=== PATIENT | female | born 1995 | race Hispanic/Latino ===

== ENCOUNTER 2024-06-19 02:50 | Emergency (ER) | payer BC, OTHER ==
[2024-06-19] MEDS ORDERED: HYDROcodone/Acetaminophen 5/325 mg Tablet ONE (03:17)
== END 2024-06-19 03:30 | disposition home or self-care (01) ==
LOC: NAV ERS 02:50
DX: K02.9 Dental caries, unspecified (principal)
CPT/HCPCS: 99282